=== PATIENT | female | born 1965 | race Two or more races ===

== ENCOUNTER 2021-06-04 10:55 | Day surgery (SDC) | payer OTHER ==
[~2021-06-04] VITALS: Ht 154.9 cm; Wt 51.3 kg
[2021-06-04] MEDS ORDERED: IOHEXOL-350 100 ML VIAL IV ONE (11:06)
[2021-06-04] MEDS ORDERED: METOPROLOL TARTRATE INJ 5 MG/5 ML AMPUL ONE ×2 (11:13→11:38)
[2021-06-04] MEDS ORDERED: NITROGLYCERIN 0.4 MG/TAB BOTTLE ONE (11:13)
[2021-06-04] MEDS: METOPROLOL TARTRATE INJ 5 MG/5 ML AMPUL IVP PRN ×10 (11:15→12:01)
[2021-06-04] MEDS ORDERED: NITROGLYCERIN 0.4 MG/TAB BOTTLE SL ONE (11:30)
[2021-06-04] MEDS ORDERED: IV NS 0.9% 500 ML IV PRN (11:30)
[2021-06-04 12:03] VITALS: BP 117/83
--- NOTE | 2021-06-04 12:07 | NUR ---
SADE from [facility]; consented to CTA heart; denies CP or SOB at this time; all questions answered; Metoprolol 5 mg IVP every 5 minutes X 10 dose and NTG 0.4 mg SL given; tolerated procedure well, VSS; sent back to [place] via ambulance
== END 2021-06-04 12:11 | disposition home or self-care (01) ==
LOC: CT 10:55
PROVIDERS: ATTEND Internal Medicine Interventional Cardiology
DX: J43.2 Centrilobular emphysema (principal)
CPT/HCPCS: 75574; J3490 ×2; Q9967